=== PATIENT | male | born 1995 | race Caucasian/White ===

== ENCOUNTER 2020-09-25 12:41 | Emergency (ER) | payer MEDICAID ==
[~2020-09-25] VITALS: Ht 170.2 cm; Wt 63.5 kg
[2020-09-25 12:53] VITALS: Ht 170.2 cm; Wt 63.5 kg
[2020-09-25 13:17] LABS: BASOPHIL % 0.3 % (0-2); PLATELET COUNT 295 x10^3mcL (130-400); RED CELL DISTRIBUTION WIDTH 12.9 % (11.5-14.5)
[2020-09-25 13:29] LABS: CALCIUM 9.9 mg/dL (8.5-10.1); CARBON DIOXIDE 26.7 mmol/L (21-32); CHLORIDE SERUM 102 mmol/L (98-107); CREATININE SERUM 0.9 mg/dL (0.7-1.3); GFR1 > 60 mL/min; GLUCOSE SERUM 99 mg/dL (74-106); POTASSIUM SERUM 3.6 mmol/L (3.5-5.1); SODIUM SERUM 138 mmol/L (136-145)
[2020-09-25 13:33] LABS: ALKALINE PHOSPHATASE 72 U/L (46-116); ALT/SGPT 122 U/L (16-63); AST/SGOT 140 U/L (15-37); BILIRUBIN TOTAL 1.4 mg/dL (0.20-1.00); LIPASE 57 IU/L (73-393); TOTAL PROTEIN, SERUM 8.3 g/dL (6.4-8.2)
[2020-09-25 14:47] LABS: microscopic required? YES; urine erythrocyte NEGATIVE (NEGATIVE)
[2020-09-25 16:50] VITALS: BP 102/42
== END 2020-09-25 16:50 | disposition home or self-care (01) ==
LOC: ED 12:41
PROVIDERS: Emergency Medicine
DX: R10.811 Right upper quadrant abdominal tenderness (principal); R10.813 Right lower quadrant abdominal tenderness; R94.5 Abnormal results of liver function studies; R11.10 Vomiting, unspecified
CPT/HCPCS: J1885; J2270; J2405; Q0092

== ENCOUNTER 2020-11-02 15:00 | Emergency (ER) | payer MEDICAID ==
[~2020-11-02] VITALS: Ht 167.6 cm; Wt 63.5 kg
[2020-11-02 15:08] VITALS: Ht 167.6 cm; Wt 63.5 kg
[2020-11-02 18:06] VITALS: BP 106/78
== END 2020-11-02 18:06 | disposition home or self-care (01) ==
LOC: ED 15:00
DX: S76.911A Strain of unspecified muscles, fascia and tendons at thigh level, right thigh, initial encounter (principal); X58.XXXA Exposure to other specified factors, initial encounter; Y93.89 Activity, other specified; Y92.89 Other specified places as the place of occurrence of the external cause; Y99.8 Other external cause status